=== PATIENT | male | born 1945 | race Caucasian/White ===

== ENCOUNTER 2017-08-01 14:30 | Inpatient (IN) | payer MEDICARE ==
[2017-08-01 15:52] VITALS: BMI 34.4
[2017-08-08] MEDS ORDERED: Ketamine 50 MG/ML VIAL ONE (06:10)
[2017-08-08] MEDS ORDERED: Midazolam HCl 2 mg/2 ml Vial ONE ×2 (06:10→07:14)
[2017-08-08] MEDS ORDERED: Fentanyl 250 MCG/5 ML VIAL ONE (06:10)
[2017-08-08] MEDS ORDERED: Albumin 5% 500 ML ONE (06:10)
[2017-08-08] MEDS ORDERED: Fentanyl 100 MCG/2 ML VIAL ONE ×3 (06:10→10:58)
[2017-08-08] MEDS ORDERED: cefOXitin 2 GM VIAL ONE (06:11)
[2017-08-08] MEDS ORDERED: Sodium Chloride 0.9% 100 ML ONE (06:12)
[2017-08-08] MEDS ORDERED: Dexamethasone 4 mg/ml Vial ONE ×2 (07:17)
[2017-08-08] MEDS ORDERED: Lidocaine 1% w/Epinephrine 1:100K 30 ML VIAL ONE (08:15)
[2017-08-08] MEDS ORDERED: Bupivacaine HCl 0.5%/Epinephrine 1:200,000/PF 30 ml Vial ONE (09:04)
[2017-08-08] MEDS ORDERED: Meperidine HCl/PF 25 MG/ML VIAL SLOW IVP PRN (09:29)
[2017-08-08] MEDS ORDERED: Promethazine HCl 25 MG/ML VIAL SLOW IVP PRN (09:29)
[2017-08-08] MEDS ORDERED: Dextrose 50% Abboject 50 ML SYRINGE SLOW IVP PRN (10:20)
[2017-08-08] MEDS ORDERED: Promethazine HCl 25 MG/ML VIAL IM PRN (10:20)
[2017-08-08] MEDS ORDERED: Ondansetron HCl/PF 4 MG/2 ML Vial IVP PRN (10:20)
[2017-08-08] MEDS ORDERED: Dextrose 5% in Water 1,000 ML IV PRN (10:20)
[2017-08-08] MEDS ORDERED: hydrALAZINE 20 MG/ML VIAL SLOW IVP PRN (10:20)
[2017-08-08] MEDS ORDERED: Calcium Carbonate 500 MG ChewTAB PO PRN (10:20)
[2017-08-08] MEDS ORDERED: Mag-Al 1200 mg/1200 mg/30 ML UDCUP PO PRN (10:20)
[2017-08-08] MEDS ORDERED: HYDROcodone/Acetaminophen 10/325 mg Tablet PO PRN ×2 (10:20)
--- NOTE | 2017-08-08 10:39 | OP ---
PREOPERATIVE DIAGNOSIS: Distal sigmoid near obstructing colon cancer. SURGEON: Fritz Montaño M.D. PROCEDURE PERFORMED: Laparoscopic low anterior resection. INDICATIONS: This is a 71-year-old male who on colonoscopy was found to have a near obstructing mass as the rectosigmoid biopsies were positive for adenocarcinoma. FINDINGS: A very large mass at the distal sigmoid colon. I did have to open up the peritoneal refle ction and take some of the rectum to get below it. I did not palpate any definite lymph nodes. The liver looked good. PROCEDURE IN DETAIL: After informed consent was obtained, he had undergone a mechanical bowel prep a t home. He was taken to the operating room and given general endotracheal anesthesia. He was placed in lithotomy position and his abdomen and perineum were prepped and draped in usual fashion. Local anesthesia infiltrated subcutaneously and deep and a 5-mm incision was performed at right flank. Pne umoperitoneum was created to a volume of 2 liters of carbon dioxide. Then, utilizing a bladeless 5 m m trocar and 0-degree laparoscope, direct visual entry in the abdominal cavity was performed. Pneumo peritoneum was created to a pressure of 15 mmHg. Two 5-mm ports were placed at right upper and right lower quadrant. The patient placed in Trendelenburg position and left side up. It was able to find the sigmoid colon and trace it down. The mass was in the deep pelvis just above the peritoneal refl ection, so I added a hand-assisted port in the left lower quadrant. A transverse incision was perfor med. Subcu divided sharply. The fascia incised and muscle splitting was performed utilizing Army-Na vy sutures to spread the muscle. Then, the posterior fascia and peritoneum was opened transversely. The hand-assisted device was inserted and hand was inserted to help define the anatomy. Retraction was achieved and the peritoneum scored in the pelvis and along the anterior aspect down to the left s sangeetha. Then, I was able to do a careful dissection around the rectum and was able to divide the rectum utilizing a linear 60 mm green load stapler with two loads. The peritoneum was scored along the med ial aspect of mesocolon and then careful dissection was performed in search of the ureter. He is mor bidly obese and honestly I did not find the ureter, but when very slowly and carefully until I was ab le to divide the mesentery, the superior rectal vessels were dissected out and ligated with Hemoclips prior to division. Then, the specimen was brought out through the hand-assisted port. The colon wa s dissected out. A Stephenie clamp placed distally and proximal to this Stephenie clamp, a blade was used to divide the colon. A 31 EEA anvil was then inserted and brought out through the mesenterium. Then , the enterotomy or colotomy was closed with a contour stapler. Then we went below and dilated the r ectum and 31 EEA was inserted through transanally and brought out through the center of the staple li ne. It was connected to the anvil and closed, then fired, then opened one and half turns and removed . The donuts were checked. They were both complete. Hemostasis was assured. The anastomosis was a lso checked by compressing the proximal colon with saline in the pelvis and insufflating the rectosig moid with air under pressure, there was no air leak. The proctoscope was removed. Hemostasis was as sured. Trocars and retractors removed. Gowns and gloves changed. The posterior fascia was closed w ith a running #1 PDS. Then the anterior fascia was closed with a #1 PDS. This wound was thoroughly irrigated with saline and then subcutaneous reapproximated with interrupted 2-0 Vicryl. Skin closed with running subcuticular 4-0 Rapide. Dermabond applied. Prior to closing the abdomen, I also close d the 12 mm port in the right lower quadrant with the GraNee needle and 0 Vicryl suture. The patient tolerated the procedure well and was transferred to recovery in good condition. Sponge and needle c ount verified correct x2.
[2017-08-08] MEDS: Ketorolac Tromethamine 30 MG/ML VIAL IVP SCH ×3 (12:39→23:43)
[2017-08-08] MEDS: Piperacillin/Tazobactam 3.375 GM in Sodium Chloride 0.9% 100 ML IVPB SCH ×3 (12:40→23:43)
[2017-08-08] MEDS ORDERED: Ondansetron HCl/PF 4 MG/2 ML Vial ONE (15:50)
[2017-08-08] MEDS ORDERED: Glycopyrrolate 0.2 MG/ML 5 ML SYRINGE ONE (15:50)
[2017-08-08] MEDS ORDERED: Dexamethasone 20 MG/5 ML VIAL ONE (15:50)
[2017-08-08] MEDS ORDERED: PROPOFOL 200 MG/20 ML VIAL ONE (15:50)
[2017-08-08] MEDS ORDERED: Lidocaine 1% PF 5 ML VIAL ONE (15:50)
[2017-08-08] MEDS: Lactated Ringer's 1,000 ML IV SCH ×3 (17:37→20:45)
[2017-08-08] MEDS: Famotidine/PF 20 mg/2ml Vial SLOW IVP SCH (20:20)
[2017-08-08] MEDS: Famotidine 20 MG TAB PO SCH (20:21)
[2017-08-09] MEDS: Lactated Ringer's 1,000 ML IV SCH ×2 (05:28→18:42)
[2017-08-09] MEDS: Piperacillin/Tazobactam 3.375 GM in Sodium Chloride 0.9% 100 ML IVPB SCH ×3 (05:28→18:42)
[2017-08-09] MEDS: Ketorolac Tromethamine 30 MG/ML VIAL IVP SCH ×3 (05:29→18:42)
[2017-08-09 06:56] LABS: #Lymphocytes 1.1 thou/uL (1.20-3.40); #Monocytes 1.1 thou/uL (0.11-0.59); #Neutrophils 14.1 thou/uL (1.40-6.50); %Basophils 0.2 % (0.0-1.0); %Eosinophils 0.1 % (0.0-10.0); %Lymphocytes 6.9 % (21.0-51.0); %Monocytes 6.6 % (0.0-10.0); %Neutrophils 86.3 % (42.0-75.0); Hemoglobin 11.9 g/dL (14.0-18.0); Mean Corpuscular HGB CONC 32.4 g/dL (32.0-36.0); Mean Corpuscular Hemoglobin 30.1 pg (27.0-31.0); Mean Corpuscular Volume 92.9 fl (80.0-94.0); Mean Platelet Volume 8.3 fL (7.4-10.4); Platelet Count 205 thou/uL (130-400); RBC Distribution Width 11.9 % (11.5-14.5); Red Blood Cell (RBC) Count 3.94 mill/uL (4.70-6.10); White Blood Cell (WBC) Count 16.3 thou/uL (4.8-10.8)
[2017-08-09 07:15] LABS: ALT (SGPT) 11 U/L (8-55); AST (SGOT) 17 U/L (5-34); Albumin 3.5 g/dL (3.4-4.8); Alkaline Phosphatase 94 U/L (40-150); Anion Gap 14 mmol/L (10-20); BUN (Urea Nitrogen) 12 mg/dL (8.4-25.7); Bilirubin, Total 0.6 mg/dL (0.2-1.2); Calc. Creatinine Clearance 117 mL/min (70-130); Calcium 8.9 mg/dL (7.8-10.44); Carbon Dioxide 23 mmol/L (23-31); Chloride 102 mmol/L (98-107); Estimated GFR-MDRD 80; Globulin 2.8 g/dL (2.4-3.5); Glucose 110 mg/dL (80-115); Potassium 4.4 mmol/L (3.5-5.1); Protein, Total 6.3 g/dL (5.8-8.1); Sodium 135 mmol/L (136-145)
[2017-08-09] MEDS ORDERED: Enoxaparin Sodium 40 MG/0.4 ML SYRINGE SC SCH (09:00)
[2017-08-09] MEDS: Famotidine 20 MG TAB PO SCH (09:44)
[2017-08-09] MEDS: Famotidine/PF 20 mg/2ml Vial SLOW IVP SCH (09:45)
[2017-08-09] MEDS ORDERED: Tamsulosin HCl 0.4 MG CAP PO SCH (10:00)
[2017-08-09 15:52] VITALS: TEMP 97.8
[2017-08-09 16:37] VITALS: BP 109/57
--- NOTE | 2017-08-10 03:28 | DIS ---
DISCHARGE DIAGNOSIS: Distal colorectal cancer. PROCEDURES DURING ADMISSION: Laparoscopic low anterior resection. HOSPITAL COURSE: The patient was admitted. He had undergone mechanical bowel prep. He was taken to the operating room where he underwent a laparoscopic sigmoid proctocolectomy. Postoperatively, he h as done well. Pain is minimal. He is passing flatus and small bowel movements. He is tolerating li quids well. His pain is minimal. He is discharged home in good condition, afebrile on hydrocodone, Zofran and follow up with me in 2 weeks.
[2017-08-10] MEDS ORDERED: Tamsulosin HCl 0.4 MG CAP PO SCH (09:00)
== END 2017-08-09 19:00 | disposition home or self-care (01) | DRG 331 ==
LOC: SURG A 08-08 05:55
PROVIDERS: ADMIT Surgery; ATTEND Surgery
PROC: 0DBN4ZZ Excision of Sigmoid Colon, Percutaneous Endoscopic Approach (ICD-10-PCS; principal; 2017-08-08)
PROC: 0DBP8ZZ Excision of Rectum, Via Natural or Artificial Opening Endoscopic (ICD-10-PCS; 2017-08-08)
DX: C18.7 Malignant neoplasm of sigmoid colon (principal); E66.01 Morbid (severe) obesity due to excess calories; Z68.34 Body mass index [BMI] 34.0-34.9, adult; F17.210 Nicotine dependence, cigarettes, uncomplicated
CPT/HCPCS: 36415; 36416; 80053; 82378; 85025; J0131; J0670; J0694; J1100; J1885; J2001; J2250; J2405; J2543; J2704; J3010; J7050; P9045; S0028

== ENCOUNTER 2017-08-01 15:33 | Outpatient (CLI) | payer MEDICARE ==
[2017-08-01 16:29] LABS: #Basophils 0.1 thou/uL (0.0-0.2); #Eosinphils 0.4 thou/uL (0.0-0.7); #Lymphocytes 1.7 thou/uL (1.20-3.40); #Monocytes 0.5 thou/uL (0.11-0.59); #Neutrophils 7.1 thou/uL (1.40-6.50); %Basophils 0.7 % (0.0-1.0); %Eosinophils 4.3 % (0.0-10.0); %Lymphocytes 17.2 % (21.0-51.0); %Monocytes 5.1 % (0.0-10.0); %Neutrophils 72.8 % (42.0-75.0); Mean Corpuscular HGB CONC 34.1 g/dL (32.0-36.0); Mean Corpuscular Hemoglobin 31.5 pg (27.0-31.0); Mean Corpuscular Volume 92.5 fl (80.0-94.0); Mean Platelet Volume 7.7 fL (7.4-10.4); Platelet Count 236 thou/uL (130-400); RBC Distribution Width 11.9 % (11.5-14.5); Red Blood Cell (RBC) Count 4.11 mill/uL (4.70-6.10); White Blood Cell (WBC) Count 9.8 thou/uL (4.8-10.8)
[2017-08-01 16:36] LABS: Hemoglobin A1c 5.3 % (4.0-6.0)
[2017-08-01 16:58] LABS: ALT (SGPT) 11 U/L (8-55); AST (SGOT) 13 U/L (5-34); Albumin 3.4 g/dL (3.4-4.8); Alkaline Phosphatase 113 U/L (40-150); Anion Gap 11 mmol/L (10-20); BUN (Urea Nitrogen) 6 mg/dL (8.4-25.7); Bilirubin, Total 0.3 mg/dL (0.2-1.2); Calc. Creatinine Clearance 0 mL/min (70-130); Calcium 8.3 mg/dL (7.8-10.44); Carbon Dioxide 24 mmol/L (23-31); Chloride 105 mmol/L (98-107); Estimated GFR-MDRD Greater than 90; Globulin 2.7 g/dL (2.4-3.5); Glucose 143 mg/dL (80-115); Protein, Total 6.1 g/dL (5.8-8.1); Sodium 136 mmol/L (136-145)
== END 2017-08-01 15:34 | disposition home or self-care (01) ==
LOC: LABBT 15:33
PROVIDERS: ATTEND Surgery
DX: Z01.812 Encounter for preprocedural laboratory examination (principal); R19.09 Other intra-abdominal and pelvic swelling, mass and lump
CPT/HCPCS: 80053; 83036; 85025; 93005; 93010

== ENCOUNTER 2017-08-27 15:04 | Outpatient (CLI) | payer MEDICARE ==
[2017-08-27 16:39] LABS: #Eosinphils 0.5 thou/uL (0.0-0.7); #Lymphocytes 1.8 thou/uL (1.20-3.40); #Monocytes 0.7 thou/uL (0.11-0.59); #Neutrophils 5.5 thou/uL (1.40-6.50); %Basophils 0.4 % (0.0-1.0); %Eosinophils 5.5 % (0.0-10.0); %Lymphocytes 21.2 % (21.0-51.0); %Monocytes 8.6 % (0.0-10.0); %Neutrophils 64.4 % (42.0-75.0); Hemoglobin 12.8 g/dL (14.0-18.0); Mean Corpuscular HGB CONC 33.9 g/dL (32.0-36.0); Mean Corpuscular Hemoglobin 31.1 pg (27.0-31.0); Mean Corpuscular Volume 91.5 fL (78.0-98.0); Mean Platelet Volume 8.3 fL (7.4-10.4); Platelet Count 237 thou/uL (130-400); RBC Distribution Width 11.7 % (11.5-14.5); Red Blood Cell (RBC) Count 4.11 mill/uL (4.70-6.10); White Blood Cell (WBC) Count 8.5 thou/uL (4.8-10.8)
[2017-08-27 17:03] LABS: ALT (SGPT) 11 U/L (8-55); AST (SGOT) 12 U/L (5-34); Albumin 3.6 g/dL (3.4-4.8); Alkaline Phosphatase 108 U/L (40-150); Anion Gap 11 mmol/L (10-20); BUN (Urea Nitrogen) 9 mg/dL (8.4-25.7); Bilirubin, Total 0.3 mg/dL (0.2-1.2); Calc. Creatinine Clearance 0 mL/min (70-130); Calcium 8.8 mg/dL (7.8-10.44); Carbon Dioxide 25 mmol/L (23-31); Chloride 104 mmol/L (98-107); Estimated GFR-MDRD Greater than 90; Globulin 3.2 g/dL (2.4-3.5); Glucose 88 mg/dL (80-115); Potassium 4.2 mmol/L (3.5-5.1); Protein, Total 6.8 g/dL (5.8-8.1); Sodium 136 mmol/L (136-145)
== END 2017-08-27 15:05 | disposition home or self-care (01) ==
LOC: LABBT 15:04
PROVIDERS: ATTEND Surgery
DX: Z01.818 Encounter for other preprocedural examination (principal); C18.9 Malignant neoplasm of colon, unspecified
CPT/HCPCS: 80053; 85025

== ENCOUNTER 2017-08-31 07:43 | Day surgery (SDC) | payer MEDICARE ==
[2017-08-27 15:35] VITALS: BMI 33.3
[2017-08-31] MEDS ORDERED: CEFAZOLIN/Water 2 GM/20 ML SYRINGE ONE (08:06)
[2017-08-31] MEDS ORDERED: Propofol 1,000 MG/100 ML VIAL IV ONE (09:54)
[2017-08-31] MEDS ORDERED: Fentanyl 100 MCG/2 ML VIAL ONE (09:54)
[2017-08-31] MEDS ORDERED: Midazolam HCl 2 mg/2 ml Vial ONE (09:54)
[2017-08-31] MEDS ORDERED: Lidocaine 2% 10 ML INJ ONE (09:56)
[2017-08-31] MEDS ORDERED: Bupivacaine/Epinephrine 0.25% 30 ML VIAL ONE (09:56)
[2017-08-31] MEDS ORDERED: Lidocaine 1% PF 5 ML VIAL ONE (10:29)
[2017-08-31] MEDS ORDERED: PROPOFOL 200 MG/20 ML VIAL ONE (10:29)
--- NOTE | 2017-08-31 12:16 | OP ---
PREOPERATIVE DIAGNOSIS: Colon cancer. SURGEON: Fritz Montaño M.D. PROCEDURE PERFORMED: MediPort placement. INDICATIONS: This is a 71-year-old male who has recently been diagnosed with metastatic colon cancer and needs chemo and access for such. FINDINGS: Attempted left subclavian, really could not get good backflow of venous blood. He went to the right side. Good backflow of venous blood. J-wire threaded easily. So, it was placed in the r ight subclavian vein. DESCRIPTION OF PROCEDURE: After informed consent was obtained, the patient was taken to the operatin g room and given total intravenous anesthesia, placed in the supine position. The abdomen was preppe d and draped in usual fashion. Local anesthesia infiltrated subcutaneously and deep. An introducer needle was inserted in left subclavian. I got a trickle of venous blood, tried to thread the wire wi th a thread, moved to the right side and there I got a good backflow of venous blood. J-wire threade d easily. The fluoroscopy was performed which showed good placement in superior vena cava. Skin and subcutaneous anesthetized with local anesthesia. Transverse chest wall incision was performed. Sub cu divided sharply and a pocket created onto the pectoralis fascia. The tunneling device was used to connect the two incisions. The catheter brought through the tunnel. It was connected to the [employer] rt system and flushed with heparinized saline. The MediPort sutured to the pectoralis fascia with in terrupted 2-0 Prolene. The catheter cut to size and a peel-away introducer inserted over the wire. The wire was removed. The catheter inserted through the peel-away introducer, then the peel-away int roducer removed. Again, fluoroscopy used showed good placement in superior vena cava. The system ac cessed with Hernandez needle. Good backflow of venous blood, flushed with heparinized saline. The subcu taneous reapproximated with interrupted 3-0 Vicryl. Skin closed with a running subcuticular 4-0 Rapi de. Dermabond applied. The patient tolerated the procedure well and was transferred to recovery in good condition. Sponge and needle count verified correct x2.
--- NOTE | 2017-08-31 13:26 | RAD ---
RADIOGRAPH CHEST 1 VIEW: DATE: 08/31/17. TIME: 10:48 a.m. HISTORY: A 71-year-old male status post MediPort placement. FINDINGS: There is hyperinflation of the lungs, consistent with COPD. There is no evidence of air space densit y, pneumothorax, or pulmonary edema. The lateral costophrenic angles are sharp. There is no cardiom egaly. There are small calcified granulomata at the right mid and right lateral basilar lung allen. The only interval change compared to 09/15/15 is the presence of a new right subclavian vascular acc ess port with distal tip overlying the mid SVC. IMPRESSION: 1) No acute pulmonary findings. 2) Emphysema. 3) Right subclavian implantable vascular access port placement without pneumothorax. jose r [] POS: [facility]EN[facility]
== END 2017-08-31 12:15 | disposition home or self-care (01) ==
LOC: SDC 07:43
PROVIDERS: ATTEND Surgery
PROC: 05H533Z Insertion of Infusion Device into Right Subclavian Vein, Percutaneous Approach (ICD-10-PCS; principal; 2017-08-31)
DX: C18.9 Malignant neoplasm of colon, unspecified (principal); C77.2 Secondary and unspecified malignant neoplasm of intra-abdominal lymph nodes
CPT/HCPCS: 36561; 71045; C1788; J1642; J2001; J2250; J2704; J3010

== ENCOUNTER 2018-01-18 10:09 | Outpatient (CLI) | payer MEDICARE ==
--- NOTE | 2018-01-18 12:13 | RAD ---
CHEST 2 VIEWS: HISTORY: Dyspnea. COMPARISON: 08/31/2017. FINDINGS: Cardiac silhouette is unremarkable. Pulmonary vasculature upper limits of normal. Mediastinum is mi dline with aortic calcification and a right subclavian Port-A-Cath. Calcified granulomata are consis tent with healed granulomatous disease. No confluent airspace consolidation, pneumothorax, or pleura l fluid. Degenerative changes thoracic spine and shoulders. IMPRESSION: 1. Atherosclerosis. 2. Chronic-type findings are stable. 3. No active cardiopulmonary abnormalities are demonstrated. POS: [facility]
== END 2018-01-18 10:10 | disposition home or self-care (01) ==
LOC: BICRAD 10:09
PROVIDERS: ATTEND Nurse Practitioner Acute Care
DX: R06.02 Shortness of breath (principal); C18.7 Malignant neoplasm of sigmoid colon; I70.90 Unspecified atherosclerosis
CPT/HCPCS: 71046

== ENCOUNTER 2018-11-27 07:37 | Outpatient (CLI) | payer MEDICARE ==
[2018-11-27 11:56] LABS: #Eosinphils 0.2 thou/uL (0.0-0.7); #Lymphocytes 1.3 thou/uL (1.20-3.40); #Monocytes 0.5 thou/uL (0.11-0.59); #Neutrophils 5.9 thou/uL (1.40-6.50); %Basophils 0.2 % (0.0-1.0); %Eosinophils 2.8 % (0.0-10.0); %Lymphocytes 16.7 % (21.0-51.0); %Monocytes 6.7 % (0.0-10.0); %Neutrophils 73.6 % (42.0-75.0); Hemoglobin 12.3 g/dL (14.0-18.0); Mean Corpuscular HGB CONC 33.4 g/dL (32.0-36.0); Mean Corpuscular Hemoglobin 31.5 pg (27.0-31.0); Mean Corpuscular Volume 94.4 fL (78.0-98.0); Mean Platelet Volume 9.1 fL (7.4-10.4); Platelet Count 142 thou/uL (130-400); White Blood Cell (WBC) Count 8.1 thou/uL (4.8-10.8)
[2018-11-27 12:19] LABS: Anion Gap 10 mmol/L (10-20); BUN (Urea Nitrogen) 12 mg/dL (8.4-25.7); Calc. Creatinine Clearance 0 mL/min (70-130); Calcium 9.2 mg/dL (7.8-10.44); Carbon Dioxide 23 mmol/L (23-31); Chloride 103 mmol/L (98-107); Estimated GFR-MDRD Greater than 90; Glucose 114 mg/dL (83-110); Potassium 4.2 mmol/L (3.5-5.1); Sodium 132 mmol/L (136-145)
== END 2018-11-27 07:38 | disposition home or self-care (01) ==
LOC: LABBT 07:37
PROVIDERS: ATTEND Surgery
DX: Z01.812 Encounter for preprocedural laboratory examination (principal); C18.9 Malignant neoplasm of colon, unspecified
CPT/HCPCS: 80048; 83036; 85025

== ENCOUNTER 2018-11-27 08:50 | Outpatient (CLI) | payer MEDICARE ==
[2018-11-27 09:25] LABS: Estimated GFR-MDRD - POC Greater than 90
--- NOTE | 2018-11-27 12:02 | CT ---
CT ABDOMEN AND PELVIS WITH CONTRAST: HISTORY: Cancer. COMPARISON: CT abdomen and pelvis of 07/14/2017. FINDINGS: New from the comparison examination is a round mass within the lateral segment right lower lobe measu ring 1 cm. There is also a round mass right middle lobe measuring 1 cm. Smaller round mass posterio r basal segment right lower lobe measures 5 mm. No pericardial effusion. Diffuse hepatic metastatic disease with innumerable metastasis involving ap proximately 40% of the hepatic parenchyma. The liver contour is somewhat nodular. The spleen is unremarkable. Numerous bri hepatis lymph nodes with the largest measuring 2.8 cm in short axis. Precaval lymph nodes are also represent as well as aortocaval lymph nodes. There is a mass of the sigmoid colon measuring up to 5.6 cm in size. Abnormal mesenteric lymph nodes are present. There appears to be nephrovascular invasion of the inferior mesenteric veins with kassidy estion. Absence of contrast enhancement of the inferior mesenteric artery 5 cm after its ostia. The sigmoid mass extends through the serosa. No other colonic mass is appreciated. Aortoiliac contour is nonaneurysmal. Advanced facet arthropathy lower lumbar spine with hemangioma o f the L2 vertebra. Posterior displacement of the coccyx relative to the sacrum, likely chronic in na ture. There is a medullary lucency at L4 vertebral body which is unchanged. No definite evidence of osseou s metastatic disease. IMPRESSION: 1. Large sigmoid mass measuring at least 6 mm in length with extension outside of a serosa and lymph ovascular invasion and occlusion of the inferior mesenteric arterial branch. There is extensive mese nteric adenopathy, metastatic in nature, with diffuse hepatic metastasis involving 40% of the hepatic parenchyma. There are also numerous bri hepatis metastatic lymph nodes. 2. Incomplete evaluation of numerous pulmonary metastasis. POS: [facility]
== END 2018-11-27 08:51 | disposition home or self-care (01) ==
LOC: CT 08:50
PROVIDERS: ATTEND Surgery
DX: C18.9 Malignant neoplasm of colon, unspecified (principal); R19.09 Other intra-abdominal and pelvic swelling, mass and lump; R59.0 Localized enlarged lymph nodes; C78.7 Secondary malignant neoplasm of liver and intrahepatic bile duct; C77.9 Secondary and unspecified malignant neoplasm of lymph node, unspecified; C78.00 Secondary malignant neoplasm of unspecified lung
CPT/HCPCS: 74177; 80048; 82565; 83036; 85025

== ENCOUNTER 2018-11-27 12:00 | Inpatient (IN) | payer MEDICARE ==
[2018-11-27 10:38] VITALS: BMI 30.1
[2018-12-03] MEDS ORDERED: cefOXitin 2 GM VIAL ONE (06:23)
[2018-12-03] MEDS ORDERED: Sodium Chloride 0.9% 0 ML ONE (06:24)
[2018-12-03] MEDS ORDERED: Sodium Chloride 0.9% 100 ML ONE (06:25)
[2018-12-03] MEDS ORDERED: Bupivacaine/Epinephrine 0.25% 30 ML VIAL ONE (06:32)
[2018-12-03] MEDS ORDERED: Fentanyl 100 MCG/2 ML VIAL ONE ×3 (06:40→09:48)
[2018-12-03] MEDS ORDERED: Dexamethasone 4 mg/ml Vial ONE (07:05)
[2018-12-03] MEDS ORDERED: Midazolam HCl 2 mg/2 ml Vial ONE (07:05)
[2018-12-03] MEDS ORDERED: Ondansetron PF 4 MG/2 ML Vial IVP PRN (09:26)
[2018-12-03] MEDS ORDERED: Promethazine HCl 25 MG/ML VIAL IM PRN ×2 (09:26→10:45)
[2018-12-03] MEDS ORDERED: hydrALAZINE 20 MG/ML VIAL SLOW IVP PRN (09:26)
[2018-12-03] MEDS ORDERED: Ondansetron HCl/PF 4 MG/2 ML Vial IVP PRN (10:45)
[2018-12-03] MEDS ORDERED: Ketorolac Tromethamine 30 MG/ML VIAL IVP PRN (10:45)
[2018-12-03] MEDS ORDERED: Meperidine HCl/PF 25 MG/ML VIAL SLOW IVP PRN (10:45)
[2018-12-03] MEDS ORDERED: Promethazine HCl 25 MG/ML VIAL SLOW IVP PRN (10:45)
[2018-12-03] MEDS: cefOXitin 2 GM in Sodium Chloride 0.9% 100 ML IVPB SCH ×2 (14:44→21:04)
[2018-12-03] MEDS: Acetaminophen 1,000 MG in Premix Bag 1 BAG IVPB SCH ×2 (15:08→18:18)
--- NOTE | 2018-12-03 15:09 | OP ---
DATE OF PROCEDURE: 12/03/2018 PREOPERATIVE DIAGNOSIS: Metastatic recurrent left colon cancer. POSTOPERATIVE DIAGNOSIS: Metastatic recurrent left colon cancer. PROCEDURES PERFORMED: Diagnostic laparoscopy with laparoscopic loop colostomy, laparoscopic percutaneous liver biopsy of metastatic tumor. ANESTHESIA: General. ESTIMATED BLOOD LOSS: 50 mL. COMPLICATIONS: None. FINDINGS: There were dense malignant adhesions in the abdomen, especially in the left colon and area of the tumor going down into the pelvis distally. The upper rectum was densely associated with the pelvic sidewall. Decision made to divert. DESCRIPTION OF PROCEDURE: The patient was taken to the operating room and laid supine on the operating room table. After general anesthetic was obtained, a Keller catheter was placed with Urology assistance. The abdomen was prepped and draped in a sterile fashion. Left subcostal 5-mm Optiview trocar was placed in the usual fashion. High-flow pneumoperitoneum was obtained. A right lower abdominal port as well as a suprapubic port were placed. There was a malignant adhesion to the posterior umbilicus, taken down using LigaSure. The recurrent cancer was seen in the left abdomen. There were multiple bulky liver metastases seen. There was no significant intraabdominal carcinomatosis. The small bowel could not be brought out of the pelvis. The colon was fused to the pelvic sidewall all the way down posterior to the bladder. Decision was made to divert only in the setting of metastatic disease. Biopsy of this liver tumor was performed. Multiple cores of tissue were obtained, assist to path for final diagnosis. In the area of the distal transverse colon, it was felt to be able to pull up to the posterior abdominal wall under no tension. The list of skin taken out in the left upper quadrant. Cruciate incision was made in the fascia. The peritoneum was entered and a Adelia used to grab the distal transverse colon and pull it up through the abdominal wall and hold it on top of the abdomen. The 12-mm port site in the right lower quadrant was closed using GraNee needle and 0 Vicryl tie. All ports were removed under camera visualization. Pneumoperitoneum was let down. 4-0 Monocryl and Dermabond were used to close all skin incisions. The loop colostomy was then matured in the usual fashion. A 16-Czech red rubber was used as the loop colostomy bar. Ostomy device was placed. The patient was sent to Recovery in stable condition. All instrument counts, needle counts, and lap counts were correct. Job ID: [id number]
--- NOTE | 2018-12-03 16:45 | OP ---
DATE OF PROCEDURE: 12/03/2018 PREOPERATIVE DIAGNOSIS: Difficult catheter placement. POSTOPERATIVE DIAGNOSIS: Enlarged prostate. PROCEDURE PERFORMED: Keller catheter placement under anesthesia. COMPLICATIONS: None. ANESTHESIA: General. BLOOD LOSS: None. DESCRIPTION OF PROCEDURE: I was contacted to present to OR C, for assistance with Keller catheter placement. Upon entering the room, I was advised that attempts have been made with a 16 straight catheter and a 16 coude with difficulty in the proximal urethra. The patient was already prepped and draped in the lithotomy position and so, I found a 14 coude catheter and was able to gentle guide this through the urethra until the bladder. A 10 mL was instilled in the balloon and clear yellow urine was draining at the end of the procedure. This was connected to the bag drainage and a StatLock device. I then performed a rectal exam noting a 50 g prostate with large lateral lobes, but no nodules or induration. I advised that I do not appreciate any unusual anatomy and that his catheter can be removed as normal tomorrow on postop day 1. Job ID: [id number]
[2018-12-03] MEDS: Famotidine 20 MG TAB PO SCH (21:03)
[2018-12-04] MEDS: Acetaminophen 1,000 MG in Premix Bag 1 BAG IVPB SCH ×2 (00:29→06:04)
[2018-12-04] MEDS: Sodium Chloride 0.9% 1,000 ML IV SCH ×2 (00:30→06:44)
[2018-12-04] MEDS: Famotidine/PF 20 mg/2ml Vial SLOW IVP SCH ×2 (05:18→09:06)
[2018-12-04 06:32] LABS: #Basophils 0.1 thou/uL (0.0-0.2); #Eosinphils 0.3 thou/uL (0.0-0.7); #Monocytes 0.9 thou/uL (0.11-0.59); #Neutrophils 11.5 thou/uL (1.40-6.50); %Basophils 0.4 % (0.0-1.0); %Lymphocytes 7.3 % (21.0-51.0); %Monocytes 6.6 % (0.0-10.0); %Neutrophils 83.6 % (42.0-75.0); Hemoglobin 11.5 g/dL (14.0-18.0); Mean Corpuscular HGB CONC 33.8 g/dL (32.0-36.0); Mean Corpuscular Hemoglobin 32.1 pg (27.0-31.0); Mean Platelet Volume 9.5 fL (7.4-10.4); Platelet Count 156 thou/uL (130-400); RBC Distribution Width 11.9 % (11.5-14.5); Red Blood Cell (RBC) Count 3.59 mill/uL (4.70-6.10); White Blood Cell (WBC) Count 13.7 thou/uL (4.8-10.8)
[2018-12-04 06:59] LABS: Anion Gap 11 mmol/L (10-20); BUN (Urea Nitrogen) 10 mg/dL (8.4-25.7); Calc. Creatinine Clearance 111 mL/min (70-130); Calcium 8.2 mg/dL (7.8-10.44); Carbon Dioxide 22 mmol/L (23-31); Chloride 105 mmol/L (98-107); Estimated GFR-MDRD Greater than 90; Glucose 95 mg/dL (83-110); Potassium 4.4 mmol/L (3.5-5.1); Sodium 134 mmol/L (136-145)
[2018-12-04] MEDS ORDERED: Prevnar 13-Val Conj/PF 0.5 ML SYRINGE IM ONE (09:00)
[2018-12-04] MEDS ORDERED: FLU VACC TS2019-20(65YR UP)/PF 180 MCG/0.5 ML SYRINGE IM ONE (09:00)
[2018-12-04] MEDS: Famotidine 20 MG TAB PO SCH (09:06)
[2018-12-04 09:09] VITALS: TEMP 97.5
[2018-12-04 15:05] VITALS: BP 128/53
== END 2018-12-04 17:16 | disposition home health service (06) | DRG 330 ==
LOC: SURG A 12-03 05:47 → SURG B 12-03 11:02
PROVIDERS: ADMIT Surgery; ATTEND Surgery
PROC: 0D1N4Z4 Bypass Sigmoid Colon to Cutaneous, Percutaneous Endoscopic Approach (ICD-10-PCS; principal; 2018-12-03)
PROC: 0FB04ZX Excision of Liver, Percutaneous Endoscopic Approach, Diagnostic (ICD-10-PCS; 2018-12-03)
PROC: 0T9B70Z Drainage of Bladder with Drainage Device, Via Natural or Artificial Opening (ICD-10-PCS; 2018-12-03)
DX: C18.7 Malignant neoplasm of sigmoid colon (principal); C78.80 Secondary malignant neoplasm of unspecified digestive organ; Z85.21 Personal history of malignant neoplasm of larynx; Z90.49 Acquired absence of other specified parts of digestive tract; Z98.52 Vasectomy status; N40.0 Benign prostatic hyperplasia without lower urinary tract symptoms; K59.00 Constipation, unspecified; H91.90 Unspecified hearing loss, unspecified ear
CPT/HCPCS: 36415; 36416; 80048; 85025; 88307; 88341; 88342; J0131; J0694; J1100; J2250; J3010; J3490

== ENCOUNTER 2019-03-17 14:22 | Outpatient (CLI) | payer MEDICARE ==
--- NOTE | 2019-03-17 15:53 | ULT ---
ULTRASOUND WITH DOPPLER DUPLEX VENOUS LOWER EXTREMITY LEFT: HISTORY: A 73-year-old male with edema and pain in the left groin and knee. TECHNIQUE: Color flow Doppler, spectral waveform analysis of pulsed Doppler, and dodson-scale imaging with job dave and augmentation, were used to evaluate the left common femoral, femoral, popliteal, posterior t ibial, and superficial femoral, veins; and the proximal portions of the profunda femoral and greater saphenous, veins. FINDINGS: There is normal compressibility, demonstration of blood flow by color Doppler and pulsed Doppler, and response to augmentation, in all interrogated veins. There are mildly enlarged lymph nodes in the l eft groin. One of them measures approximately 2.6 x 0.7 cm. Another one is 2.0 x 0.5 cm. IMPRESSION: 1. No deep vein thrombosis in the left lower extremity. 2. Left inguinal lymphadenopathy. jnR POS: OFF
== END 2019-03-17 14:23 | disposition home or self-care (01) ==
LOC: ULT 14:22
PROVIDERS: ATTEND Internal Medicine Hematology & Oncology
DX: M79.605 Pain in left leg (principal); R60.0 Localized edema; I82.90 Acute embolism and thrombosis of unspecified vein; M79.89 Other specified soft tissue disorders; R59.0 Localized enlarged lymph nodes
CPT/HCPCS: 80053; 82248; 82378; 83615; 84100; 84550

== ENCOUNTER 2019-03-25 09:20 | Outpatient (CLI) | payer MEDICARE ==
--- NOTE | 2019-03-25 11:34 | CT ---
CT of theabdomen and pelvis: 03/25/2019 COMPARISON:11/27/2018 HISTORY:Reevaluate sigmoid colon cancer and hepatic metastatic disease TECHNIQUE: Serial axial CT imaging at5 mm from thelung bases through pubic symphysis with IV and oral contrast. Coronal and sagittal reformatted imaging. Findings:The right middle lobe pulmonary nodule noted on the prior examination measures 7-8 mm on thi s study, previously measuring 9-10 mm. A tiny nodule is also noted within the right lower lobe posteriorly on image 8, decreased slightly in size as well. No new nodules are noted within the imaged lung bases. No free intraperitoneal air or fluid. Innumerable lesions are seen throughout the right and left lobe of the liver, evidence of extensive h epatic metastatic disease. The largest lesion within the left lobe is seen on image 17 and measures approximately 4.7 x 5.6 cm, decreased from 6.8 x 6.4 cm on the prior study. Largest lesion within the right lobe is seen inferiorly on image 31 measuring 2.8 cm in greatest dimension, decreased from 3.9 cm on the prior study. There is a necrotic appearing enlarged lymph node in the region of the gastrohepatic ligament measuri ng 1.5 cm in short axis dimension, which appears to have slightly increased in size when compared to the prior exam. There are low-density/necrotic enlarged lymph nodes in the bri hepatis measuring up to 1.9 cm in sh ort axis dimension, decreased from 2.9 cm on the prior study. The spleen, pancreas, and adrenal glands are unremarkable. Stable small right hepatic cyst. There is a suture line within the colon distally just superior to the urinary bladder posteriorly. Pr oximal to this is a focal area of sigmoid colonic wall thickening consistent with malignancy of the sigmoid colon, best seen on axial image 63. The sigmoid tumor measures approximately 5 cm in length, decreased from 5.7 cm on the prior exam. Tumor extended into the adjacent fat anteriorly and medially on the prior examination, which has improved on the current study. No evidence for bowel obs truction. There is an ostomy in the mid left abdomen. Multiple scattered small/mildly enlarged retroperitoneal lymph nodes are noted, stable. Scattered sta ble atherosclerotic calcification of the abdominal aorta and its branches noted. No discrete lytic or blastic bone lesion. Impression:Interval response to therapy with interval decrease in size of right basilar pulmonary nod ules, hepatic metastatic lesions, and bri hepatis lymph nodes. The sigmoid colon tumor has also decreased in size. Mild interval enlargement in lymphadenopathy is noted in the gastrohepatic ligamen t region.
[2019-03-25] MEDS ORDERED: Iopamidol-370 76% 500 ML 1 ML ONE (15:15)
== END 2019-03-25 09:21 | disposition home or self-care (01) ==
LOC: BICCT 09:20
PROVIDERS: ATTEND Internal Medicine Hematology & Oncology
DX: C18.7 Malignant neoplasm of sigmoid colon (principal); C78.7 Secondary malignant neoplasm of liver and intrahepatic bile duct; R59.0 Localized enlarged lymph nodes; R91.8 Other nonspecific abnormal finding of lung field
CPT/HCPCS: 74177

== ENCOUNTER 2019-05-22 09:39 | Outpatient (CLI) | payer MEDICARE ==
--- NOTE | 2019-05-22 13:55 | NM ---
WHOLE BODY BONE SCAN: HISTORY: History of colon cancer RADIOPHARMACEUTICAL: 32.90 mCi technetium 99m-MDP injected intravenously COMPARISON:CT of the abdomen and pelvis dated March 25, 2019 CORRELATION: None FINDINGS: There are foci of increased radiotracer uptake involving the anterolateral left third rib, inferior s ternum, left acromial spine, pelvis, left proximal femur and left anterior pubic root consistent with osseous metastatic disease. Moderate amount of retained radiotracer seen at the level of the getachew dder which the patient could not fully evacuated. IMPRESSION: Scattered foci of osseous metastatic disease involving the thoracolumbar spine, left acro mial spine, pelvis and proximal left femur.
== END 2019-05-22 09:40 | disposition home or self-care (01) ==
LOC: NM 09:39
PROVIDERS: ATTEND Internal Medicine Hematology & Oncology
DX: C18.7 Malignant neoplasm of sigmoid colon (principal); M54.6 Pain in thoracic spine; M25.552 Pain in left hip; M25.551 Pain in right hip; C79.51 Secondary malignant neoplasm of bone
CPT/HCPCS: 78306; A9503

== ENCOUNTER 2019-05-26 11:02 | Outpatient (CLI) | payer MEDICARE ==
--- NOTE | 2019-05-26 11:27 | RAD ---
Exam:Left femur 2 views HISTORY: Metastatic colon cancer. Pain. Eval for osseous metastases COMPARISON: None FINDINGS: No fracture, cortical irregularity or periosteal reaction. Minimal atherosclerosis. No abno rmal soft tissue component. Visualized bony pelvis and sacrum are unremarkable. IMPRESSION: No radiographic evidence of metastases. No evidence of pathologic fracture.
== END 2019-05-26 11:03 | disposition home or self-care (01) ==
LOC: BICRAD 11:02
PROVIDERS: ATTEND Internal Medicine Hematology & Oncology
DX: C18.7 Malignant neoplasm of sigmoid colon (principal); R93.7 Abnormal findings on diagnostic imaging of other parts of musculoskeletal system
CPT/HCPCS: 80053; 82248; 82378; 83615; 84100; 84550

== ENCOUNTER 2019-07-01 10:06 | Emergency (ER) | payer MEDICARE ==
[2019-07-01] MEDS ORDERED: Ondansetron PF 4 MG/2 ML Vial ONE (10:38)
[2019-07-01] MEDS ORDERED: Morphine 4 MG/ML VIAL ONE (10:55)
[2019-07-01 11:04] LABS: Mean Corpuscular HGB CONC 32.4 g/dL (32.0-36.0); Mean Corpuscular Hemoglobin 31.4 pg (27.0-31.0); Mean Corpuscular Volume 96.9 fL (78.0-98.0); Red Blood Cell (RBC) Count 2.86 mill/uL (4.70-6.10); White Blood Cell (WBC) Count 10.1 thou/uL (4.8-10.8)
[2019-07-01 11:08] LABS: Bacteria/HPF None Seen HPF (None Seen); Bilirubin 1+ (Negative); Blood, Urine Negative (Negative); Clarity Turbid (Clear); Glucose, Urine (Dipstick) Normal (Negative); Leukocyte 75 Leu/uL (Negative); Nitrite Negative (Negative); Protein, Urine (Dipstick) 30 mg/dL (Neg-Trace); RBC/HPF 0-3 HPF (0-3); Squamous Epithelial 0-3 HPF (0-3)
[2019-07-01 11:13] LABS: ALT (SGPT) 38 U/L (8-55); AST (SGOT) 97 U/L (5-34); Alkaline Phosphatase 505 U/L (40-110); Anion Gap 15 mmol/L (10-20); BUN (Urea Nitrogen) 17 mg/dL (8.4-25.7); Bilirubin, Total 2.3 mg/dL (0.2-1.2); Calc. Creatinine Clearance 0 mL/min (70-130); Calcium 9.1 mg/dL (7.8-10.44); Carbon Dioxide 20 mmol/L (23-31); Chloride 103 mmol/L (98-107); Estimated GFR-MDRD 90; Globulin 4.1 g/dL (2.4-3.5); Glucose 98 mg/dL (83-110); Lipase 39 U/L (8-78); Potassium 4.5 mmol/L (3.5-5.1); Protein, Total 7.1 g/dL (5.8-8.1); Sodium 133 mmol/L (136-145)
[2019-07-01 11:21] LABS: #Eosinphils 0.3 thou/uL (0.0-0.7); #Lymphocytes 0.8 thou/uL (1.20-3.40); #Monocytes 1.1 thou/uL (0.11-0.59); #Neutrophils 7.9 thou/uL (1.40-6.50); %Basophils 0.3 % (0.0-1.0); %Lymphocytes 7.4 % (21.0-51.0); %Monocytes 11.2 % (0.0-10.0); %Neutrophils 78.2 % (42.0-75.0); Large Platelets SLIGHT; MDiff Complete? YES; Mean Platelet Volume 11.7 fL (7.4-10.4); Platelet Count 98 thou/uL (130-400); Platelet Morphology Comment Appears Decreased; Polychromasia SLIGHT = 2-3 cells (100X) (0-2/hpf)
[2019-07-01] MEDS ORDERED: Iopamidol-370 76% 500 ML 1 ML ONE (12:01)
[2019-07-01] MEDS ORDERED: Metoclopramide HCl 10 MG/2 ML VIAL ONE (12:40)
[2019-07-01] MEDS ORDERED: Dexamethasone 10 MG/ML VIAL ONE (12:40)
[2019-07-01] MEDS ORDERED: Ketorolac Tromethamine 30 MG/ML VIAL ONE (12:40)
--- NOTE | 2019-07-01 13:34 | CT ---
CT ABDOMEN AND PELVIS WITH IV CONTRAST: DATE: 07/01/2019. PROVIDED CLINICAL HISTORY: Right lower quadrant pain, history of sigmoid colon cancer. FINDINGS: Evaluation is limited by lack of oral contrast material as well as patient motion. Comparison is made with the study dated 03/25/2019. Interval development of new pulmonary nodules at the right lung base, the largest of which measures a bout 8 mm. Numerous hepatic metastatic lesions are redemonstrated, the majority of which demonstrate interval in crease in size. The largest lesion involving the lateral segment of the left hepatic lobe measures a bout 6 x 6.7 cm in greatest transverse dimensions on the current study compared with about 5.6 x 4.7 cm on prior. Numerous enlarged lymph nodes are seen within the bri hepatis, with enlargement of po rtocaval lymph node now measuring about 2 cm in short axis. There is interval development of free intraperitoneal fluid, primarily about the hepatic and splenic margins. The spleen now appears enlarged, measuring at least 17.4 cm in craniocaudal dimension as op posed to about 13.5 cm on prior. There is increase in caliber of splenic hilar vessels without evide nce for central portal venous obstruction. The kidneys, pancreas, and adrenal glands appear unremarkable. Interval development of enlarged retr operitoneal lymph nodes, largest of which in a left periaortic location measures about 1.7 cm in shor t axis. Prominent mural thickening involving the sigmoid colon compatible with known malignancy is redemonstr ated. Changes of left upper quadrant diverting colostomy are again seen. There is no evidence for b owel obstruction or free air. Vascular calcifications are noted involving the abdominal aorta and its branches. The osseous structures demonstrate no concerning lytic or blastic lesions. IMPRESSION: 1. Interval worsening of hepatic metastatic disease. 2. Development of ascites. 3. Development of splenomegaly. 4. New pulmonary nodules. 5. Interval worsening of abdominal lymphadenopathy. POS: [facility]
== END 2019-07-01 12:57 | disposition home or self-care (01) ==
LOC: ERS 10:06
DX: N39.0 Urinary tract infection, site not specified (principal); C78.00 Secondary malignant neoplasm of unspecified lung; R10.31 Right lower quadrant pain; F17.220 Nicotine dependence, chewing tobacco, uncomplicated; Z79.899 Other long term (current) drug therapy
CPT/HCPCS: 36415; 74177; 80053; 81003; 81015; 83690; 85025; 96361; 96374; 96375; J1100; J1885; J2270; J2405; J2765

== ENCOUNTER 2019-07-13 03:16 | Inpatient (IN) | payer MEDICARE, OTHER ==
[2019-07-13] MEDS ORDERED: Acetaminophen 325 MG TAB PO PRN (04:17)
[2019-07-13] MEDS ORDERED: Ondansetron ODT 4 MG TAB PO PRN (04:17)
[2019-07-13] MEDS ORDERED: Acetaminophen 650 MG Suppository PR PRN (04:17)
[2019-07-13] MEDS ORDERED: Ondansetron PF 4 MG/2 ML Vial IVP PRN (04:17)
[2019-07-13] MEDS ORDERED: Morphine 4 MG/ML VIAL SLOW IVP PRN ×2 (04:54→06:01)
--- NOTE | 2019-07-13 04:54 | PDOC.HHP ---
Hospitalist HPI - History of Present Illness abdominal pain History of Present Illness: pt is weak and poor historian, history is limited due to poor communication and understanding Case of an 73y/o male with pmhx of colo ca with metatasis to lungs and liver who comes to hospital due to abdominal pain. patient refers since 1 month ago he has been having increasing abd, had a ct done 1month ago which showed worsening of his metastasic disease to liver and lungs. since then pt has been having abdominal pain, incresing ascites and leg edema, he states he went to hospital due to the pain. there sepsis protocol was activated due to elevated wbc count, they did a covid swap and pt was transfered here for further evaluation and management. patient is still currently on quemo last treatment was last Sunday Hospitalist ROS - Review of Systems All other systems reviewed; all pertinent +/- noted in HPI/Subj Hospitalist History - Past Medical History Heme/Onc: reports: Cancer - Exam General Appearance: awake alert, ill appearing Eye: PERRL, anicteric sclera ENT: normocephalic atraumatic, no oropharyngeal lesions Neck: supple, symmetric, no JVD, no thyromegaly Heart: RRR, no murmur, no gallops Respiratory: CTAB, no wheezes, no rales Gastrointestinal: tender to palpation, distended Extremities: 2+ LE edema Skin: normal turgor, no lesions, no rashes Neurological: cranial nerve grossly intact, normal sensation to touch Musculoskeletal: generalized weakness Psychiatric: normal affect, normal behavior, A&O x 3 Hospitalist H&P A/P - Problem (1) Sepsis Code(s): A41.9 - SEPSIS, UNSPECIFIED ORGANISM Status: Acute (2) COVID-19 ruled out Code(s): Z03.818 - ENCNTR FOR OBS FOR SUSP EXPSR TO OTH BIOLG AGENTS RULED OUT Status: Acute (3) Colon cancer Code(s): C18.9 - MALIGNANT NEOPLASM OF COLON, UNSPECIFIED Status: Acute (4) Liver failure Status: Acute (5) GI bleeding Code(s): K92.2 - GASTROINTESTINAL HEMORRHAGE, UNSPECIFIED Status: Acute - Plan Plan: sepsis - pt transfiered due to sepsis parameters, upon chart reviewed leukocytosis seems to be chronic, pt with no new complains of fever chills, does refer sob and cough but this is also a chronic finding, none the less pt w elevated lactid acid and immuno compromise, will cover prophylactically with cefepime and vanc, f/u blood cultures, u/a and u/c gi bleeding - after initial assesment, brendan guardado was called on pt, with started pouring blood clots thru the colostomy bag, hg stat was order as well as abd/ pelvic ct. gi was consulted and pt was trasfer to intermidiate level covid 19 r/o - patient with sob and cough likely secondary to lung mets, was swab for covid, pending results, will start isolation protocols colon cancer with mets / liver failure - patient with worsening of his cancer and mets, now with elevated liver enzymes and bili, this is not new but is worse , ot came a few weeks ago and abd/pelvic ct was done which showed worsening liver mets. patient seems to be a candidate for palliative / hospice care, but at this point he wishes to continue with treatment and full code
[2019-07-13] MEDS: Sodium Chloride 0.9% 1,000 ML IV SCH (06:24)
[2019-07-13] MEDS ORDERED: Pantoprazole 80 MG in Sodium Chloride 0.9% 100 ML IVP SCH (06:30)
[2019-07-13 06:47] VITALS: BMI 29.1
[2019-07-13] MEDS ORDERED: Vancomycin HCl 1.75 GM in Sodium Chloride 0.9% 500 ML IVPB SCH (07:30)
--- NOTE | 2019-07-13 08:12 | CT ---
PRELIMINARY REPORT/[facility]/EMERGENCY AFTER HOURS PROCEDURE: This report was discussed with Sheela Francisco RN by Helen Curry on July 13, 2019 06:27:00 CDT. Addendum electronically signed by Helen Curry on July 13, 2019 6:30:37 AM CDT EXAM: CT Abdomen and Pelvis with Intravenous Contrast CLINICAL HISTORY: GI BLEED CODE BLUE TECHNIQUE: Axial computed tomography images of the abdomen and pelvis with intravenous contrast. CONTRAST: With; ISOVUE 370,100mL COMPARISON: None provided. FINDINGS: LUNG BASES: 1.0 cm nodule at the right lung base. Two additional 5 mm pulmonary nodules in the right medial lung base. Calcified granuloma at the right lung base. LIVER: Innumerable hypodense masses throughout both lobes of the liver measuring up to 7.9 cm conglom eration in the left hepatic lobe and 4.2 cm in the inferior right hepatic lobe. GALLBLADDER AND BILE DUCTS: Status post cholecystectomy. PANCREAS: Unremarkable. SPLEEN: Unremarkable. ADRENAL GLANDS: 2.1 and 1.2 cm left adrenal nodules and 0.8 cm right adrenal nodule KIDNEYS, URETERS, AND BLADDER: 1.6 cm right renal hypodensity which is indeterminate. No nephrolithi asis or hydronephrosis. STOMACH AND BOWEL: Surgical anastomosis in the distal colon. 5.8 cm segments of bowel just proximal t o the anastomosis with marked pleural thickening and hyperenhancement which is concerning for tumor. No bowel obstruction. APPENDIX: No CT evidence for appendicitis. PERITONEUM: Small to moderate amount of free fluid in the abdomen and pelvis. Surgical clips in the p resacral region. Mild nodularity at the left anterior abdomen for which omental involvement cannot be excluded. LYMPH NODES: Left para-aortic lymphadenopathy measuring up to 1.5 cm in short axis. Aortocaval lymp h node measuring up to 1.4 cm in short axis. Portacaval lymph node measures up to 2.1 cm in short axis. 0.9 cm lymph node at the bri hepatis. REPRODUCTIVE: Mild enlargement of the prostate measuring up to 5.0 cm in transverse dimension. VASCULATURE: Atherosclerotic calcifications of the aorta. BONES: Degenerative changes of the spine. ABDOMINAL WALL AND SOFT TISSUES: Small left lateral ventral abdominal wall hernia containing nondilat ed loops of transverse colon. IMPRESSION: Surgical anastomosis in the distal colon. 5.8 cm segment of bowel just proximal to the an astomosis with marked mural thickening and hyperenhancement which is concerning for tumor. Extensive evidence of metastatic disease including innumerable hepatic metastases, bilateral adrenal metastases, pulmonary nodules at the right lung base and retroperitoneal lymphadenopathy. Mild nodularity at the left anterior abdomen for which omental involvement cannot be excluded. 1.6 cm rig ht renal hypodensity which is indeterminate. ELECTRONICALLY SIGNED BY: Haven Hartman MD July 13, 2019 6:23:06 AM CDT FINAL REPORT EXAM: CT ABDOMEN AND PELVIS HISTORY: GI bleed. COMPARISON: 07/01/2019. Procedure: Multiple contiguous axial images were obtained and a CT of the abdomen and pelvis with IV contrast. C oronal reformats were performed. FINDINGS: Lower Chest: Stable nodules in the right lower lobe, worrisome for metastases. Vessels: Normal caliber aorta. Heart: Normal heart size. Abdomen: Portal vein:Patent. Gallbladder: Surgically absent. Liver: Multifocal hepatic metastases. Pancreas: within normal limits. Spleen: within normal limits. Adrenals: within normal limits. Kidneys: Stable hypodensity in the right and left renal cortices. No evidence of obstructive uropathy . Peritoneum: Stable complex ascites. Bowel: No evidence of a bowel obstruction. Redemonstration of a left lower quadrant diverting colosto my. There is increased density in the sigmoid colon with mucosal thickening, similar to the previous exam. Mesentery and Retroperitoneum: Stable enlarged retroperitoneal lymphadenopathy. Abdominal Wall: Stable left lower quadrant diverting colostomy. Pelvis: Reproductive Organs: Reproductive organs are unremarkable. Pelvis: No mass, lymphadenopathy, free air or free fluid. Bladder: No mucosal abnormality. Bones: within normal limits. IMPRESSION: 1. This report is in agreement with initial report by [facility]. 2. Extensive multifocal metastases, similar to the previous examination. 3. Redemonstration of hyperenhancement and mucosal thickening involving the sigmoid colon. There is e vidence for recurrent/residual tumor. Transcribed Date/Time: 07/13/2019 8:22 AM
[2019-07-13 08:17] LABS: #Basophils 0.1 thou/uL (0.0-0.2); #Lymphocytes 0.8 thou/uL (1.20-3.40); #Monocytes 0.1 thou/uL (0.11-0.59); #Neutrophils 12.4 thou/uL (1.40-6.50); %Basophils 0.5 % (0.0-1.0); %Eosinophils 6.7 % (0.0-10.0); %Lymphocytes 5.8 % (21.0-51.0); %Monocytes 0.8 % (0.0-10.0); %Neutrophils 86.3 % (42.0-75.0); Anisocytosis SLIGHT = 6-15 cells (100X) (0-5/hpf); Hemoglobin 3.7 g/dL (14.0-18.0); MDiff Complete? YES; Mean Corpuscular HGB CONC 31.8 g/dL (32.0-36.0); Mean Corpuscular Hemoglobin 31.8 pg (27.0-31.0); Mean Platelet Volume 11.9 fL (7.4-10.4); Platelet Count 123 thou/uL (130-400); RBC Distribution Width 22.5 % (11.5-14.5); Red Blood Cell (RBC) Count 1.16 mill/uL (4.70-6.10); White Blood Cell (WBC) Count 14.4 thou/uL (4.8-10.8)
[2019-07-13 08:24] LABS: Hemoglobin 6.4 g/dL (14.0-18.0)
[2019-07-13] MEDS ORDERED: Prevnar 13-Val Conj/PF 0.5 ML SYRINGE IM ONE (08:45)
--- NOTE | 2019-07-13 08:51 | OP ---
DATE OF PROCEDURE: 07/13/2019 PREOPERATIVE DIAGNOSIS: Bleeding from colostomy site. POSTOPERATIVE DIAGNOSIS: Bleeding from colostomy site. PROCEDURE PERFORMED: Over-sew of bleeding vessel at colostomy mucosa. ANESTHESIA: None. ESTIMATED BLOOD LOSS: Minimal. COMPLICATIONS: None. INDICATIONS FOR PROCEDURE: The patient is a 73-year-old with known metastatic obstructing rectosigmoid cancer, developed bleeding overnight. There was a code blue. Hemoglobin this morning is 3, it is being repeated. He is hemodynamically stable. DESCRIPTION OF PROCEDURE: The colostomy device is removed. There was bleeding from the 6 o'clock position of the colostomy. This area was oversewn using Vicryl suture. There was no ongoing bleeding. The ostomy device is replaced by the nurse. No complications. Please call if there is any further bleeding. Job ID: [id number]
[2019-07-13] MEDS ORDERED: Pantoprazole 40 MG VIAL IVP SCH (09:00)
[2019-07-13] MEDS ORDERED: Vancomycin 1 GM in Premix Bag 1 BAG IVPB SCH (09:00)
[2019-07-13] MEDS ORDERED: Enoxaparin Sodium 40 MG/0.4 ML SYRINGE SC SCH (09:00)
[2019-07-13] MEDS: Cefepime 2 GM in Sodium Chloride 0.9% 100 ML IVPB SCH ×2 (09:15→20:53)
--- NOTE | 2019-07-13 11:35 | PDOC.HOSPP ---
- Subjective Encounter Date: 07/13/19 Encounter Time: 11:33 Subjective: Mr Montes was seen today in follow-up of bleeding from stoma. He has been seen and treated by Surgery. He is laying in bed, and does not have any complaints. He is asking when he can go home. - Objective Vital Signs & Weight: Vital Signs (12 hours) Temp Pulse Ox 07/13/19 07:44 100 07/13/19 07:00 98.6 F 07/13/19 05:55 100 Weight Weight 191 lb 12.835 oz Most Recent Monitor Data Heart Rate from ECG 83 NIBP 111/49 NIBP BP-Mean 69 Respiration from ECG 21 SpO2 100 I&O: 07/12/19 07/13/19 07/14/19 06:59 06:59 06:59 Intake Total 840 Output Total 1 Balance 839 Result Diagrams: 07/13/19 08:15 Hospitalist ROS - Medication Medications: Active Medications Generic Name Dose Route Start Last Admin Trade Name Freq PRN Reason Stop Dose Admin Cefepime HCl 2 gm/ Sodium 100 mls @ 200 mls/hr 07/13/19 09:00 07/13/19 09:15 Chloride IVPB 100 mls Q12HR ANÍBAL Administration Sodium Chloride 1,000 mls @ 50 mls/hr 07/13/19 04:30 07/13/19 06:24 Normal Saline 0.9% IV 1,000 mls .Q20H ANÍBAL Administration Morphine Sulfate 4 mg 07/13/19 06:01 07/13/19 08:33 Morphine SLOW IVP 4 mg Q4H PRN Administration BREAKTHROUGH/NPO Pain Ondansetron HCl 4 mg 07/13/19 04:17 07/13/19 07:35 Zofran IVP 4 mg Q6H PRN Administration Nausea/Vomiting Sodium Chloride 10 ml 07/13/19 09:00 07/13/19 09:07 Flush - Normal Saline IVF 10 ml Q12HR ANÍBAL Administration - Exam Eye: PERRL, anicteric sclera Heart: RRR, no murmur, no gallops, no rubs, normal peripheral pulses Respiratory: CTAB, no wheezes, no rales, no ronchi, normal chest expansion Gastrointestinal: soft, non-tender (+ mild distension, stoma looks good, no bleeding or oozing., brown stool from ostomy), normal bowel sounds Extremities: no cyanosis Hosp A/P (1) Complication of ostomy Code(s): [id number] - Status: Acute (2) Acute blood loss anemia Code(s): D62 - ACUTE POSTHEMORRHAGIC ANEMIA Status: Acute (3) Colon cancer Code(s): C18.9 - MALIGNANT NEOPLASM OF COLON, UNSPECIFIED Status: Acute (4) Sepsis Code(s): A41.9 - SEPSIS, UNSPECIFIED ORGANISM Status: Acute - Plan * Bleeding from Ostomy, with acute blood loss anemia- hemostasis has been achieved by Dr. Avitia * He is significant anemia, and will transfuse an additional unit of blood * Sepsis syndrome- his vital signs and lab values may reflect more of a consequence of the acute bleed, and an infectious origin, however, will continue IV antibiotics. amd follow-up on Blood cultures * COVID screen has been ordered * Patient has Norphine listed as an allergy, but this may have been more due to an adverse reaction ( felt dyspneic ) than a true allergy. He was given a dose earlier, without any untoward effects. *
[2019-07-13] MEDS: HYDROcodone/Acetaminophen 5/325 mg Tablet PO PRN ×2 (12:34→16:53)
--- NOTE | 2019-07-13 14:20 | CON ---
DATE OF CONSULTATION: REASON FOR CONSULTATION: The patient is in the ICU. CONSULTING PHYSICIAN: Hospitalist . Following encompassed 50 minutes critical care time, of that greater than 50% spent with the patient and/or reviewing the patient's chart and records. HISTORY OF PRESENT ILLNESS: Darrion Montes is a who presented to the hospital earlier this morning in transfer from the [facility]. He has a history of colon cancer with metastasis to the lung and liver. He presented with abdominal pain. He had some bleeding coming out of his ostomy site. He was found to have an arterial bleeder, which was tied off by Dr. Avitia. He bled down to a hematocrit of 11, for reasons that are not clear to me, he had a COVID test ordered, so he is in quarantine for that. PAST MEDICAL HISTORY: 1. Colon cancer. 2. Sinusitis. 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 4. Nasal polyposis. PAST SURGICAL HISTORY: He has had a sigmoid colectomy with colostomy. FAMILY MEDICAL HISTORY: Remarkable for coronary artery disease, cancer. SOCIAL HISTORY: He has a smoking history. Does not consume alcohol or use illicit drugs. ALLERGIES: NONE. MEDICATIONS: Prior to admission, not known. Current inpatient medications; 1. Cefepime. 2. Morphine. 3. Vancomycin. 4. He has also received several units of blood. REVIEW OF SYSTEMS: Otherwise negative. PHYSICAL EXAMINATION: VITAL SIGNS: Temperature 96.5, pulse 80, blood pressure 104/51, and O2 sat 100%. GENERAL: The patient is awake, appears in no distress. HEENT: Unremarkable. NECK: No adenopathy or JVD. LUNGS: Clear anteriorly. CARDIOVASCULAR: S1 and S2, regular. ABDOMEN: Colostomy noted. No bleeding at current time. EXTREMITIES: No clubbing, cyanosis, or edema. LABORATORY DATA: Last hematocrit was 20. Sodium 134, potassium 4.9, chloride 102, CO2 of 19, BUN 28, creatinine 0.8, glucose 116. ASSESSMENT: 1. Arterial bleeding from colostomy site - now treated with surgical therapy by Dr. Avitia. 2. Rule out COVID. 3. Anemia due to blood loss. PLAN: The patient could be transferred to the floor once his COVID test comes back negative. Transfuse as needed. Pulmonary will be available as needed. Job ID: [id number]
[2019-07-13 18:41] LABS: Bilirubin 1+ (Negative); Blood, Urine 1+ (Negative); Clarity Clear (Clear); Glucose, Urine (Dipstick) Normal (Negative); Leukocyte Negative Leu/uL (Negative); Nitrite Negative (Negative); Protein, Urine (Dipstick) 30 mg/dL (Neg-Trace); Squamous Epithelial 0-3 HPF (0-3)
[2019-07-13 18:44] LABS: Bacteria/HPF Rare-Few HPF (None Seen)
[2019-07-13 18:45] LABS: Urine Culture Reflex Yes Yes
[2019-07-13] MEDS ORDERED: HYDROmorphone 0.5 MG/0.5 ML SYRINGE SLOW IVP PRN (19:45)
[2019-07-13] MEDS: Vancomycin 1 GM in Premix Bag 1 BAG IVPB SCH (19:57)
[2019-07-13] MEDS: Pantoprazole 40 MG VIAL IVP SCH (20:03)
--- NOTE | 2019-07-13 20:39 | PDOC.EVN ---
Event Note - Event Note Event Note: Patient will 13 beats of VTACH otherwise symptomatic, will check electrolytes
[2019-07-13 21:27] LABS: Anion Gap 13 mmol/L (10-20); BUN (Urea Nitrogen) 27 mg/dL (8.4-25.7); Calc. Creatinine Clearance 100 mL/min (70-130); Calcium 6.9 mg/dL (7.8-10.44); Carbon Dioxide 17 mmol/L (23-31); Chloride 105 mmol/L (98-107); Estimated GFR-MDRD Greater than 90; Glucose 113 mg/dL (83-110); Magnesium 2.3 mg/dL (1.6-2.6); Potassium 4.4 mmol/L (3.5-5.1); Sodium 131 mmol/L (136-145)
[2019-07-14] MEDS: Sodium Chloride 0.9% 1,000 ML IV SCH ×2 (03:46→20:22)
[2019-07-14 05:20] LABS: ALT (SGPT) 76 U/L (8-55); AST (SGOT) 179 U/L (5-34); Albumin 2.5 g/dL (3.4-4.8); Alkaline Phosphatase 551 U/L (40-110); Anion Gap 13 mmol/L (10-20); BUN (Urea Nitrogen) 24 mg/dL (8.4-25.7); Bilirubin, Total 5.8 mg/dL (0.2-1.2); Calc. Creatinine Clearance 105 mL/min (70-130); Calcium 6.9 mg/dL (7.8-10.44); Carbon Dioxide 16 mmol/L (23-31); Chloride 106 mmol/L (98-107); Estimated GFR-MDRD Greater than 90; Globulin 3.6 g/dL (2.4-3.5); Glucose 92 mg/dL (83-110); Potassium 4.2 mmol/L (3.5-5.1); Protein, Total 6.1 g/dL (5.8-8.1); Sodium 131 mmol/L (136-145)
[2019-07-14 05:39] LABS: #Basophils 0.1 thou/uL (0.0-0.2); #Eosinphils 0.8 thou/uL (0.0-0.7); #Lymphocytes 0.7 thou/uL (1.20-3.40); #Monocytes 0.2 thou/uL (0.11-0.59); #Neutrophils 7.2 thou/uL (1.40-6.50); %Basophils 0.9 % (0.0-1.0); %Eosinophils 8.9 % (0.0-10.0); %Lymphocytes 8.1 % (21.0-51.0); %Monocytes 1.7 % (0.0-10.0); %Neutrophils 80.4 % (42.0-75.0); Hemoglobin 6.5 g/dL (14.0-18.0); Mean Corpuscular HGB CONC 32.2 g/dL (32.0-36.0); Mean Corpuscular Hemoglobin 32.2 pg (27.0-31.0); Mean Platelet Volume 11.3 fL (7.4-10.4); Platelet Count 109 thou/uL (130-400); RBC Distribution Width 17.5 % (11.5-14.5); Red Blood Cell (RBC) Count 2.01 mill/uL (4.70-6.10); White Blood Cell (WBC) Count 8.9 thou/uL (4.8-10.8)
[2019-07-14] MEDS: Vancomycin 1 GM in Premix Bag 1 BAG IVPB SCH ×2 (07:22→20:22)
[2019-07-14] MEDS: Cefepime 2 GM in Sodium Chloride 0.9% 100 ML IVPB SCH ×2 (07:23→20:22)
[2019-07-14] MEDS: Pantoprazole 40 MG VIAL IVP SCH ×2 (07:24→20:22)
--- NOTE | 2019-07-14 08:52 | PRG ---
DATE OF SERVICE: 07/14/2019 SUBJECTIVE: The patient remains in the ICU, waiting for his rule out COVID test to come back. OBJECTIVE: VITAL SIGNS: Temperature 97, pulse 83, blood pressure 99/64, and O2 sat 100%. HEENT: Unremarkable. NECK: No JVD. CHEST: Clear. CARDIAC: S1 and S2 regular. ABDOMEN: Colostomy noted. EXTREMITIES: No edema. LABORATORY DATA: Sodium 131, potassium 4.2, BUN 24, and creatinine 0.7. White blood cell count 8.9, hemoglobin 6.5, hematocrit 20.1, and platelet count 109. ASSESSMENT: 1. Gastrointestinal bleeding, which seems to be resolved. 2. Anemia due to blood loss. 3. Rule out COVID. PLAN: The patient could be moved out to the floor as soon as COVID test comes back negative, he may require another transfusion before going home. I would not hesitate to stop his antibiotics. I think the blood loss would explain his hypotension at the time of admission. Job ID: [id number]
[2019-07-14] MEDS: Tamsulosin HCl 0.4 MG CAP PO SCH (09:18)
[2019-07-14 10:26] LABS: SARS-CoV-2 MS2 Positive; SARS-CoV-2 N Gene Negative; SARS-CoV-2 S Gene Negative; SARS-CoV-2 orf1ab Negative
--- NOTE | 2019-07-14 11:04 | PDOC.HOSPP ---
- Subjective Encounter Date: 07/14/19 Encounter Time: 07:15 Subjective: Patient seen and examined. No new complaints. No overnight events - Objective Vital Signs & Weight: Vital Signs (12 hours) Temp Pulse Resp BP Pulse Ox 07/14/19 10:00 98.2 F 07/14/19 09:25 98.0 F 76 18 90/56 L 100 07/14/19 09:10 98.2 F 77 20 106/54 L 100 07/14/19 07:55 97.0 F L 07/14/19 07:43 100 07/14/19 04:00 98.4 F 07/14/19 00:00 98.0 F Weight Weight 191 lb 12.835 oz Most Recent Monitor Data Heart Rate from ECG 80 NIBP 92/49 NIBP BP-Mean 63 Respiration from ECG 23 SpO2 100 I&O: 07/13/19 07/14/19 07/15/19 06:59 06:59 06:59 Intake Total 2862 240 Output Total 1076 300 Balance 1786 -60 Result Diagrams: 07/14/19 04:13 07/14/19 04:13 Radiology Reviewed by me: Yes EKG Reviewed by me: Yes Hospitalist ROS - Review of Systems Eyes: denies: pain, vision change, conjunctivae inflammation, eyelid inflammation, redness, other ENT: denies: ear pain, ear discharge, nose pain, nose discharge, nose congestion , mouth pain, mouth swelling, throat pain, throat swelling, other Respiratory: denies: cough, dry, shortness of breath, hemoptysis, SOB with excertion, pleuritic pain, sputum, wheezing, other Cardiovascular: denies: chest pain, palpitations, orthopnea, paroxysmal noc. dyspnea, edema, light headedness, other Gastrointestinal: denies: nausea, vomiting, abdominal pain, diarrhea, constipation, melena, hematochezia, other Genitourinary: denies: dysuria, frequency, incontinence, hematuria, retention, other Musculoskeletal: denies: neck pain, shoulder pain, arm pain, back pain, hand pain, leg pain, foot pain, other - Medication Medications: Active Medications Generic Name Dose Route Start Last Admin Trade Name Freq PRN Reason Stop Dose Admin Hydrocodone Bitart/Acetaminophen 2 tab 07/13/19 04:17 07/13/19 16:53 [place] 5/325 PO 2 tab Q4H PRN Administration Severe Pain (7-10) Hydromorphone HCl 0.5 mg 07/13/19 19:45 07/13/19 19:58 Dilaudid SLOW IVP 0.5 mg Q3H PRN Administration BREAKTHRU/NPO PAIN Cefepime HCl 2 gm/ Sodium 100 mls @ 200 mls/hr 07/13/19 09:00 07/14/19 07:23 Chloride IVPB 100 mls Q12HR ANÍBAL Administration Sodium Chloride 1,000 mls @ 50 mls/hr 07/13/19 04:30 07/14/19 03:46 Normal Saline 0.9% IV 1,000 mls .Q20H ANÍBAL Administration Vancomycin HCl 1 gm/ Device 200 mls @ 200 mls/hr 07/13/19 20:00 07/14/19 07: 22 IVPB 200 mls 0800,2000 ANÍBAL Administration Ondansetron HCl 4 mg 07/13/19 04:17 07/13/19 07:35 Zofran IVP 4 mg Q6H PRN Administration Nausea/Vomiting Pantoprazole Sodium 40 mg 07/13/19 21:00 07/14/19 07:24 Protonix IVP 40 mg Q12HR ANÍBAL Administration Sodium Chloride 10 ml 07/13/19 09:00 07/14/19 07:24 Flush - Normal Saline IVF 10 ml Q12HR ANÍBAL Administration Tamsulosin HCl 0.4 mg 07/14/19 09:00 07/14/19 09:18 Flomax PO 0.4 mg DAILY ANÍBAL Administration - Exam General Appearance: NAD, awake alert, ill appearing Eye: PERRL, anicteric sclera ENT: normocephalic atraumatic, no oropharyngeal lesions Neck: supple, symmetric, no JVD, no thyromegaly Heart: RRR, no murmur, no gallops, no rubs Respiratory: CTAB, no wheezes, no rales, no ronchi Gastrointestinal: soft, non-tender, non-distended, normal bowel sounds Gastrointestinal - other findings: colostomy+ Extremities: no cyanosis, no clubbing Skin: normal turgor, no lesions Neurological: no focal deficits Musculoskeletal: normal tone, normal strength Psychiatric: normal affect, normal behavior Hosp A/P (1) GI bleeding Code(s): K92.2 - GASTROINTESTINAL HEMORRHAGE, UNSPECIFIED Status: Acute (2) Complication of ostomy Code(s): [id number] - Status: Acute (3) Acute blood loss anemia Code(s): D62 - ACUTE POSTHEMORRHAGIC ANEMIA Status: Acute (4) COVID-19 ruled out Code(s): Z03.818 - ENCNTR FOR OBS FOR SUSP EXPSR TO OTH BIOLG AGENTS RULED OUT Status: Ruled-out (5) Colon cancer Code(s): C18.9 - MALIGNANT NEOPLASM OF COLON, UNSPECIFIED Status: Chronic (6) Sepsis Code(s): A41.9 - SEPSIS, UNSPECIFIED ORGANISM Status: Suspected Qualifiers: Sepsis acute organ dysfunction status: unspecified (7) Abnormal LFTs Code(s): R94.5 - ABNORMAL RESULTS OF LIVER FUNCTION STUDIES Status: Acute (8) BPH (benign prostatic hyperplasia) Code(s): N40.0 - BENIGN PROSTATIC HYPERPLASIA WITHOUT LOWER URINRY TRACT SYMP Status: Chronic - Plan old records reviewed/req, continue antibiotics will transfuse 1 unit PRBC continue empiric antibiotic pending culture result repeat labs medication reviewed and continue symptomatic treatment add folic acid and vitamin B12
[2019-07-14 11:39] VITALS: BP 106/62
[2019-07-14] MEDS ORDERED: Cepastat Lozenges 1 LOZ PO PRN (21:15)
--- NOTE | 2019-07-14 21:55 | CON ---
DATE OF CONSULTATION: REASON FOR CONSULT: Metastatic colon cancer. HISTORY OF PRESENT ILLNESS: Mr. Montes is a 73-year-old gentleman, who has metastatic moderately differentiated adenocarcinoma of the distal colon. He has diffuse metastatic disease involving the liver. He has undergone multiple treatments and most recently was on Erbitux and irinotecan. He had a CT scan in the late June that showed progression of malignancy with increasing liver mets and new ascites. He has had significant weakness, poor appetite and decline in performance status. He has had multiple falls and when he saw Dr. Hyman on July 08, was encouraged to seek comfort care under hospice. He declined at that time and did undergo chemotherapy on that day. Over the weekend, he presented to the emergency room with abdominal discomfort. There was some blood in his colostomy. He ended up having an arterial bleed, which was repaired by Dr. Avitia. He dropped to a hemoglobin of 3.7. He has been transfused and is currently stable at 6.5. He continues to be extremely weak and has poor oral intake here in the hospital. PAST MEDICAL HISTORY: 1. Stage IV colon cancer with recent progression of his liver mets. 2. 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 3. Nasal polyps. PAST SURGICAL HISTORY: 1. Cholecystectomy. 2. Appendectomy. 3. Colon biopsy. 4. Laparoscopic lower anterior resection. 5. MediPort placement. FAMILY HISTORY: Mother and brother had unknown type of cancer. SOCIAL HISTORY: , has 3 children. Lives alone. Fifty-five pack years smoking cigarettes. No alcohol or illicit drug use. REVIEW OF SYSTEMS: A 10-point review of systems is negative except for noted in HPI. PHYSICAL EXAMINATION: VITAL SIGNS: Temperature is 97.6, pulse is 77, respiratory rate 26, BP is 105/47. GENERAL: This is a cachectic male, in no acute distress. HEENT: Normocephalic, atraumatic. Pupils are equal and reactive to light. NECK: Supple. CV: Regular rate and rhythm. LUNGS: Clear. ABDOMEN: Soft. He has protrudent ostomy. EXTREMITIES: He has 1+ lower extremity edema. SKIN: No rash. HEMATOLOGIC: No petechiae or purpura. NEUROLOGICAL: Nonfocal. PERTINENT LABS AND X-RAYS: Current WBCs are 8.9, hemoglobin 6.5, hematocrit 20.1, platelet count is 109,000. He has 80% neutrophils, 8% lymphocytes. Sodium is 131, potassium 4.2, chloride 106, CO2 of 16, BUN is 24, creatinine 0.78, calcium 6.9, magnesium 2.3, bilirubin is 5.8, AST is 179, ALT 76, alkaline phosphatase is 551. Serum total protein is 6.1, albumin 2.5, globulin 3.6. COVID negative. Abdominal and pelvis CT showed extensive evidence of metastatic disease in the liver, bilateral adrenal glands, pulmonary nodules, and retroperitoneal lymphadenopathy. ASSESSMENT: 1. Arterial bleeding from colostomy repaired by Dr. Avitia. 2. Metastatic colon cancer with recent progression on CT. 3. Declining performance status. DISCUSSION: The patient was seen at bedside. His caregiver, Kary, was on speaker phone. We discussed that he has continued to decline. He is extremely weak and has had multiple falls in the last several weeks. He had bleeding in his colostomy after his last chemotherapy and will likely have no further treatment. Per Dr. Hyman' recommendation, recommend we focus on comfort care under hospice at home. Both patient and caregiver were in agreement. We will put in a case management consult to assist with hospice setup. Code status to be addressed by Palliative Care. Thank you for the consult. Job ID: [id number]
[2019-07-15] MEDS: HYDROcodone/Acetaminophen 5/325 mg Tablet PO PRN ×2 (00:37→05:50)
[2019-07-15 04:07] LABS: #Eosinphils 0.3 thou/uL (0.0-0.7); #Lymphocytes 0.7 thou/uL (1.20-3.40); #Monocytes 0.2 thou/uL (0.11-0.59); #Neutrophils 2.8 thou/uL (1.40-6.50); %Basophils 0.4 % (0.0-1.0); %Eosinophils 6.6 % (0.0-10.0); %Lymphocytes 18.1 % (21.0-51.0); %Monocytes 5.1 % (0.0-10.0); %Neutrophils 69.7 % (42.0-75.0); Hemoglobin 6.7 g/dL (14.0-18.0); Mean Corpuscular HGB CONC 32.8 g/dL (32.0-36.0); Mean Corpuscular Hemoglobin 32.6 pg (27.0-31.0); Mean Corpuscular Volume 99.5 fL (78.0-98.0); Mean Platelet Volume 11.9 fL (7.4-10.4); Platelet Count 80 thou/uL (130-400); RBC Distribution Width 16.7 % (11.5-14.5); Red Blood Cell (RBC) Count 2.06 mill/uL (4.70-6.10)
[2019-07-15 04:16] LABS: ALT (SGPT) 74 U/L (8-55); AST (SGOT) 167 U/L (5-34); Albumin 2.5 g/dL (3.4-4.8); Alkaline Phosphatase 518 U/L (40-110); Anion Gap 13 mmol/L (10-20); BUN (Urea Nitrogen) 19 mg/dL (8.4-25.7); Bilirubin, Total 5.4 mg/dL (0.2-1.2); Calc. Creatinine Clearance 110 mL/min (70-130); Calcium 6.7 mg/dL (7.8-10.44); Carbon Dioxide 15 mmol/L (23-31); Chloride 107 mmol/L (98-107); Estimated GFR-MDRD Greater than 90; Globulin 3.6 g/dL (2.4-3.5); Glucose 89 mg/dL (83-110); Potassium 3.8 mmol/L (3.5-5.1); Protein, Total 6.1 g/dL (5.8-8.1); Sodium 131 mmol/L (136-145)
[2019-07-15] MEDS ORDERED: Folic Acid 1 MG TAB PO SCH (09:00)
[2019-07-15] MEDS ORDERED: Cyanocobalamin (Vitamin B-12) 1,000 MCG TAB PO SCH (09:00)
[2019-07-15] MEDS: Vancomycin 1 GM in Premix Bag 1 BAG IVPB SCH (09:37)
[2019-07-15] MEDS: Cefepime 2 GM in Sodium Chloride 0.9% 100 ML IVPB SCH (09:37)
--- NOTE | 2019-07-15 10:14 | PDOC.HOSPP ---
- Subjective Encounter Date: 07/15/19 Encounter Time: 09:45 Subjective: Patient seen and examined. No new complaints. No overnight events - Objective Vital Signs & Weight: Vital Signs (12 hours) Temp Pulse Ox 07/15/19 08:00 100 07/15/19 07:20 97.9 F 07/15/19 03:31 97.8 F 07/14/19 23:31 98.3 F Weight Weight 191 lb 12.835 oz Most Recent Monitor Data Heart Rate from ECG 75 NIBP 99/29 NIBP BP-Mean 52 Respiration from ECG 17 SpO2 100 I&O: 07/14/19 07/15/19 07/16/19 06:59 06:59 06:59 Intake Total 2862 2280 0 Output Total 1076 1100 Balance 1786 1180 0 Result Diagrams: 07/15/19 03:32 07/15/19 03:32 EKG Reviewed by me: Yes Hospitalist ROS - Review of Systems ENT: denies: ear pain, ear discharge, nose pain, nose discharge, nose congestion , mouth pain, mouth swelling, throat pain, throat swelling, other Respiratory: denies: cough, dry, shortness of breath, hemoptysis, SOB with excertion, pleuritic pain, sputum, wheezing, other Cardiovascular: denies: chest pain, palpitations, orthopnea, paroxysmal noc. dyspnea, edema, light headedness, other Gastrointestinal: denies: nausea, vomiting, abdominal pain, diarrhea, constipation, melena, hematochezia, other Genitourinary: denies: dysuria, frequency, incontinence, hematuria, retention, other Musculoskeletal: denies: neck pain, shoulder pain, arm pain, back pain, hand pain, leg pain, foot pain, other - Medication Medications: Active Medications Generic Name Dose Route Start Last Admin Trade Name Freq PRN Reason Stop Dose Admin Acetaminophen 650 mg 07/13/19 04:17 07/15/19 03:08 Tylenol PO 650 mg Q4H PRN Administration Headache/Fever/Mild Pain (1-3) Hydrocodone Bitart/Acetaminophen 1 tab 07/13/19 04:17 07/15/19 05:50 [place] 5/325 PO 1 tab Q4H PRN Administration Moderate Pain (4-6) Hydrocodone Bitart/Acetaminophen 2 tab 07/13/19 04:17 07/13/19 16:53 [place] 5/325 PO 2 tab Q4H PRN Administration Severe Pain (7-10) Hydromorphone HCl 0.5 mg 07/13/19 19:45 07/13/19 19:58 Dilaudid SLOW IVP 0.5 mg Q3H PRN Administration BREAKTHRU/NPO PAIN Cefepime HCl 2 gm/ Sodium 100 mls @ 200 mls/hr 07/13/19 09:00 07/15/19 09:37 Chloride IVPB Not Given Q12HR ANÍBAL Sodium Chloride 1,000 mls @ 50 mls/hr 07/13/19 04:30 07/14/19 20:22 Normal Saline 0.9% IV 1,000 mls .Q20H ANÍBAL Administration Vancomycin HCl 1 gm/ Device 200 mls @ 200 mls/hr 07/13/19 20:00 07/15/19 09: 37 IVPB Not Given 0800,1999 ANÍBAL Ondansetron HCl 4 mg 07/13/19 04:17 07/13/19 07:35 Zofran IVP 4 mg Q6H PRN Administration Nausea/Vomiting Pantoprazole Sodium 40 mg 07/13/19 21:00 07/14/19 20:22 Protonix IVP 40 mg Q12HR ANÍBAL Administration Sodium Chloride 10 ml 07/13/19 09:00 07/14/19 20:22 Flush - Normal Saline IVF 10 ml Q12HR ANÍBAL Administration Tamsulosin HCl 0.4 mg 07/14/19 09:00 07/14/19 09:18 Flomax PO 0.4 mg DAILY ANÍBAL Administration Throat Lozenges 1 jad 07/14/19 21:15 07/14/19 21:48 Cepastat Lozenges PO 1 jad Q2H PRN Administration Sore Throat - Exam General Appearance: NAD, awake alert Eye: PERRL, anicteric sclera ENT: normocephalic atraumatic, no oropharyngeal lesions Neck: supple, symmetric, no JVD Heart: RRR, no murmur, no gallops, no rubs Respiratory: CTAB, no wheezes, no rales Gastrointestinal: soft, non-tender, non-distended Gastrointestinal - other findings: colostomy+ Extremities: no cyanosis, no clubbing Skin: normal turgor, no lesions Neurological: no focal deficits Musculoskeletal: normal tone, normal strength Psychiatric: normal affect, normal behavior Hosp A/P (1) GI bleeding Code(s): K92.2 - GASTROINTESTINAL HEMORRHAGE, UNSPECIFIED Status: Acute (2) Complication of ostomy Code(s): [id number] - Status: Acute (3) Acute blood loss anemia Code(s): D62 - ACUTE POSTHEMORRHAGIC ANEMIA Status: Acute (4) COVID-19 ruled out Code(s): Z03.818 - ENCNTR FOR OBS FOR SUSP EXPSR TO OTH BIOLG AGENTS RULED OUT Status: Ruled-out (5) Colon cancer Code(s): C18.9 - MALIGNANT NEOPLASM OF COLON, UNSPECIFIED Status: Chronic (6) Sepsis Code(s): A41.9 - SEPSIS, UNSPECIFIED ORGANISM Status: Suspected Qualifiers: Sepsis acute organ dysfunction status: unspecified (7) Abnormal LFTs Code(s): R94.5 - ABNORMAL RESULTS OF LIVER FUNCTION STUDIES Status: Acute (8) BPH (benign prostatic hyperplasia) Code(s): N40.0 - BENIGN PROSTATIC HYPERPLASIA WITHOUT LOWER URINRY TRACT SYMP Status: Chronic - Plan 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
[2019-07-15] MEDS: Tamsulosin HCl 0.4 MG CAP PO SCH (10:24)
[2019-07-15] MEDS: Pantoprazole 40 MG VIAL IVP SCH (10:25)
[2019-07-15 11:13] VITALS: TEMP 97.8
--- NOTE | 2019-07-15 11:24 | DIS ---
DATE OF ADMISSION: 07/13/2019 DATE OF DISCHARGE: 07/15/2019 PRIMARY CARE PHYSICIAN: [facility] Call admission. DISCHARGE DISPOSITION: Home with Home Hospice. PRIMARY DISCHARGE DIAGNOSES: 1. Acute blood loss anemia. 2. Bleeding from colostomy. 3. Gastrointestinal bleeding. 4. Abnormal liver function tests due to metastasis. 5. Advanced metastatic colon cancer. SECONDARY DISCHARGE DIAGNOSES: 1. Benign enlargement of the prostate. 2. Physical deconditioning. PRIMARY PROCEDURE/OPERATION: Dr. Avitia did colostomy device removed and there was bleeding from 6 o'clock position from colostomy and the bleeding was stopped. 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 SIGNIFICANT LABORATORY DATA: WBC , hemoglobin 6.7, platelet 80. Sodium 131, potassium 3.8, BUN 19, creatinine 0.75, calcium 6.7, AST 167, ALT 74, alkaline phosphatase 518, albumin 2.5. Urinalysis unremarkable. COVID-19 negative. Blood culture negative. Urine culture growing gram-negative sada, less than 5000 CFU. DISCHARGE MEDICATIONS: The patient will continue all his previous medications; 1. [place] 10 two tablets q.4 hourly p.r.n. 2. Zofran 4 mg q.6 hourly p.r.n. 3. Morphine sulfate ER 30 mg p.o. twice daily. 4. Megace 400 mg p.o. daily. 5. Flomax 0.4 mg p.o. daily. 6. Vitamin B12 1000 mcg p.o. daily. 7. Folic acid 1 mg p.o. daily. CONTRAINDICATION: None. CODE STATUS: DNR. INPATIENT END PACKER: Dr. Perez was following while in hospital. Dr. Avitia was consulted for colostomy bleeding. Oncology was consulted for metastatic colon cancer. ALLERGIES: NONE. DISCHARGE PLAN: Post-hospital, the patient is discharged to home with Home Hospice. HOSPITAL COURSE: A 73-year-old male who was admitted by Dr. Caputo. Please see his H and P for further details. The patient was not able to provide good history on admission, but he has underlying history of advanced metastatic colon cancer. He has metastasis to liver and lungs as well as adrenal gland. The patient has worsening of metastasis despite treatment. Now, the patient was admitted for bleeding from colostomy site. He was having increasing abdominal pain, increasing ascites, and increasing edema. He was also found with low hemoglobin. His hemoglobin on admission was 6.4. He was given total 3 units of blood transfusion. His bleeding was from colostomy site and that was corrected by Dr. Avitia. This patient was evaluated by Oncology team. Based on overall condition, he was deemed that he is not a candidate for any further therapy, and Oncology recommended comfort care only. We discussed with the patient about goal of care and the patient decided to go home with Home Hospice. He changed his code status to DNR. The patient is overall doing well, but his long-term prognosis is extremely poor. With help of piano case and bench assembler, we have arranged hospice for him. The patient will be discharged home later on today. Job ID: [id number]
--- NOTE | 2019-07-15 17:55 | PQF ---
DATE: 07-15-19 ATTN: DR. DIPAK MONTANEZ Please exercise your independent, professional judgment in responding to the clarification form. Clinical indicators are provided on the bottom of this form for your review Please check appropriate box(s) to clarify if the following diagnosis has been ruled in or ruled out: SEPSIS [ x ] Ruled in diagnosis [ x] Continue to treat [ ] Resolved [ ] Ruled out diagnosis [ ] Other diagnosis [ ] Unable to determine In addition, please specify: Present on Admission (POA): [ x ] Yes [ ] No [ ] Unable to determine For continuity of documentation, please document condition throughout progress notes and discharge summary. Thank You. CLINICAL INDICATORS - SIGNS / SYMPTOMS / LABS / RESULTS AND LOCATION IN MR: ER NOTES 07-13-19: TRANSFERED FROM OUTSIDE FACILITY2/2 TO POSSIBLE SEPSIS AND SOB, WEAKNESS ER DX 07-13-19: SEPSIS, COVID RULE OUT, DYSPNEA H&P 07-13-19: SEPSIS, GI BLEEDING, COVID R/O, COLON CA WITH METS, LIVER FAILURE WBC: 07-13-19: 14.4, 07-14-19: 8.9 07-15-19: 4.0 BP: 07-14-19: 106/54, 90/56 RISK FACTORS / RESULTS AND LOCATION IN MR: ER NOTES 07-13-19: TRANSFERED FROM OUTSIDE FACILITY2/2 TO POSSIBLE SEPSIS AND SOB, WEAKNESS ER DX 07-13-19: SEPSIS, COVID RULE OUT, DYSPNEA H&P 07-13-19: SEPSIS, GI BLEEDING, COVID R/O, COLON CA WITH METS, LIVER FAILURE TREATMENTS / RESULTS AND LOCATION IN MR: [facility] 07-13-19: CEFEPIME IV, NS IVF, VANCOMYCIN IV (This form is maintained as a part of the permanent medical record) 2014 [employer] All Rights Reserved [email or web address]
== END 2019-07-15 15:15 | disposition hospice, home (50) | DRG 347 ==
LOC: ERS 03:16 → 2SW 03:54 → CCU 05:26 → IMCU/EMU 07-14 12:31
PROVIDERS: ADMIT Internal Medicine; ATTEND Internal Medicine
PROC: 0W3P7ZZ Control Bleeding in Gastrointestinal Tract, Via Natural or Artificial Opening (ICD-10-PCS; principal; 2019-07-13)
PROC: 30233N1 Transfusion of Nonautologous Red Blood Cells into Peripheral Vein, Percutaneous Approach (ICD-10-PCS; 2019-07-13)
DX: K94.01 Colostomy hemorrhage (principal); A41.9 Sepsis, unspecified organism; C78.02 Secondary malignant neoplasm of left lung; C78.01 Secondary malignant neoplasm of right lung; C78.7 Secondary malignant neoplasm of liver and intrahepatic bile duct; D62 Acute posthemorrhagic anemia; I47.2 Ventricular tachycardia; Z66 Do not resuscitate; Z20.828 Contact with and (suspected) exposure to other viral communicable diseases; Y83.8 Other surgical procedures as the cause of abnormal reaction of the patient, or of later complication, without mention of misadventure at the time of the procedure; N40.0 Benign prostatic hyperplasia without lower urinary tract symptoms; Z90.49 Acquired absence of other specified parts of digestive tract; Z79.899 Other long term (current) drug therapy; Z88.5 Allergy status to narcotic agent; Z85.038 Personal history of other malignant neoplasm of large intestine
CPT/HCPCS: 36415; 36430; 74177; 80048; 80053; 80202; 81001; 83735; 84145; 85025; 86850; 86900; 86901; 87040; 87086; 87635; 92950; 99285; C9113; J0692; J1170; J2270; J2405; J3370; J3490; J7030; P9016; U0003

== ENCOUNTER 2019-07-15 22:37 | Emergency (ER) | payer MEDICARE, OTHER | END 2019-07-16 00:55 | LOC: ERS 22:37 | DX: K94.01 Colostomy hemorrhage (principal); F17.210 Nicotine dependence, cigarettes, uncomplicated; F17.220 Nicotine dependence, chewing tobacco, uncomplicated; Z85.038 Personal history of other malignant neoplasm of large intestine; Z79.899 Other long term (current) drug therapy | CPT/HCPCS: 99283 ==